=== PATIENT | female | born 2000 | race Caucasian/White ===

== ENCOUNTER 2020-12-16 06:02 | Inpatient (IN) ==
[2020-12-16] MEDS ORDERED: LACTATED RINGERS 1,000 ML IV ONE (06:25)
[2020-12-16] MEDS ORDERED: LACTATED RINGERS 1,000 ML IV SCH ×2 (06:30→12:30)
[2020-12-16 06:59] LABS: Basophils % 0.1 % (0.0-0.8); Eosinophils # 0.1 10*3/uL (0.0-0.87); Eosinophils % 1.5 % (0.00-10.9); Hematocrit 34.5 VOL% (35.7-47.0); Hemoglobin 10.9 GM/DL (12.0-16.0); Immature Granulocytes Absolute 0.08 #; Lymphocytes # 2.1 10*3/uL (1.4-4.0); Lymphocytes % 25.4 % (21.3-54.2); Mean Corpuscular HGB Conc 31.6 GM/DL (32-36); Mean Corpuscular Volume 89.1 FL (87-102); Mean Platelet Volume 10.3 FL (9.6-12.0); Monocytes % 6.7 % (1.7-12.7); Neutrophils % 65.3 % (38.7-73.9); Platelet Count 220 T/CUMM (130-400); Red Blood Count 3.87 MC/CUMM (3.8-5.5); Red Cell Distribution Width 15.6 % (9.3-17.3); White Blood Count 8.2 T/CUMM (4-12)
[2020-12-16 07:26] LABS: Alanine Aminotransferase 14 U/L (13-56); Albumin 2.5 G/DL (3.4-5.0); Alkaline Phosphatase 128 U/L (45-117); Aspartate Amino Transferase 11 U/L (0-37); Bilirubin,Total < 0.39 MG/DL (0.20-1.00); Blood Urea Nitrogen 5 MG/DL (7-18); Calcium 8.6 MG/DL (8.5-10.1); Carbon Dioxide 22 MMOL/L (21-32); Estimated Glom Filtration Rate 164 ML/MIN; Glucose 87 MG/DL (74-106); Osmolality,Calculated 270.7 MOS/KG (273-304); Potassium 3.5 MMOL/L (3.5-5.1); Sodium 138 MMOL/L (136-145); Total Protein 6.5 G/DL (6.4-8.2)
[2020-12-16] MEDS ORDERED: miSOPROStoL 200 MCG TABLET ONE (07:27)
[2020-12-16] MEDS ORDERED: TRANEXAMIC ACID 1,000 MG/10 ML VIAL ONE (07:27)
[2020-12-16] MEDS ORDERED: METHYLERGONOVINE 0.2 MG/1 ML AMP ONE (07:28)
[2020-12-16] MEDS ORDERED: CARBOPROST TROMETHAMINE 250 MCG/ML AMP IM ONE (07:28)
[2020-12-16] MEDS ORDERED: ceFAZolin 2,000 MG/50 ML DUPLEX IV ONE (07:30)
[2020-12-16] MEDS ORDERED: FAMOTIDINE 20 MG/2 ML VIAL IV ONE (07:30)
[2020-12-16] MEDS ORDERED: CITRIC ACID/SODIUM CITRATE 30 ML UDCUP PO ONE (07:30)
[2020-12-16] MEDS ORDERED: PHENYLEPHRINE 1 MG/10 ML SYRINGE IV ONE (07:35)
[2020-12-16] MEDS ORDERED: BUPIVACAINE SPINAL 0.75% 2 ML AMP SPINAL ONE (07:35)
[2020-12-16] MEDS ORDERED: ONDANSETRON 4 MG/2 ML VIAL ONE (07:35)
[2020-12-16] MEDS ORDERED: OXYTOCIN/LR 30 UNIT/1,000 ML BAG IV ONE ×2 (07:52→07:53)
[2020-12-16] MEDS ORDERED: OXYTOCIN 10 UNIT/ML VIAL IM ONE (07:52)
[2020-12-16] MEDS ORDERED: KETOROLAC 30 MG/1 ML VIAL ONE (11:10)
[2020-12-16] MEDS ORDERED: ACETAMINOPHEN INJ 1,000 MG/100 ML VIAL IV ONE (11:10)
[2020-12-16] MEDS ORDERED: MIDAZOLAM 2 MG/2 ML VIAL ONE ×2 (11:14→11:17)
[2020-12-16 11:22] LABS: Bilirubin,Urine Negative (Negative); Blood, Urine Negative (Negative); Glucose,Urine (UA) Negative (Negative); Ketones,Urine Negative (Negative); Nitrite,Urine Negative (Negative); Protein,Urine Negative; RBC,Urine <1 /HPF (0-4); Urine Appearance CLEAR (Clear); Urine Color Straw (Yellow); Urine Specific Gravity 1.008 (1.001-1.035); Urine Urobilinogen < 2.0 EU/DL (0.2-1.0)
[2020-12-16 11:23] LABS: Cord Venous Blood HCO3 25.1 MMOL/L; Cord Venous Blood PCO2 40.3 MMHG; Cord Venous Blood PO2 35.2 MMHG
[2020-12-16] MEDS ORDERED: diphenhydrAMINE 50 MG/1 ML VIAL ONE (11:36)
[2020-12-16] MEDS ORDERED: ACETAMINOPHEN 325 MG TABLET PO PRN (12:10)
[2020-12-16] MEDS ORDERED: OXYTOCIN/LR 20 UNIT/1,000 ML BAG IV ONE (12:10)
[2020-12-16] MEDS ORDERED: RHO(D) IMMUNE GLOBULIN 300 MCG SYRINGE IM ONE (12:10)
[2020-12-16] MEDS ORDERED: SIMETHICONE CHEW 80 MG TABLET PO PRN (12:10)
[2020-12-16] MEDS ORDERED: ONDANSETRON 4 MG/2 ML VIAL IV PRN (12:10)
[2020-12-16] MEDS ORDERED: ACETAMINOPHEN 500 MG TABLET PO SCH (14:00)
[2020-12-16] MEDS: DOCUSATE SODIUM 100 MG CAPSULE PO SCH (22:46)
[2020-12-16 22:48] LABS: Basophils % 0.3 % (0.0-0.8); Eosinophils # 0.2 10*3/uL (0.0-0.87); Hemoglobin 9.7 GM/DL (12.0-16.0); Immature Granulocytes % 0.4 %; Immature Granulocytes Absolute 0.04 #; Lymphocytes # 3.2 10*3/uL (1.4-4.0); Lymphocytes % 35.9 % (21.3-54.2); Mean Corpuscular HGB Conc 31.3 GM/DL (32-36); Mean Corpuscular Volume 90.1 FL (87-102); Mean Platelet Volume 10.3 FL (9.6-12.0); Monocytes % 5.4 % (1.7-12.7); Platelet Count 177 T/CUMM (130-400); Red Blood Count 3.44 MC/CUMM (3.8-5.5); Red Cell Distribution Width 15.5 % (9.3-17.3); White Blood Count 8.9 T/CUMM (4-12)
[2020-12-16] MEDS ORDERED: KETOROLAC 30 MG/1 ML VIAL IV SCH (23:00)
[2020-12-16 23:25] LABS: Eosinophils 1 % (0-10); Hypochromasia Slight; Lymphocytes 34 % (20-55); Platelet Estimate Normal; Segmented Neutrophils 58 % (50-85); Total Cells Counted 100
[2020-12-17 05:15] LABS: Basophils % 0.3 % (0.0-0.8); Eosinophils # 0.2 10*3/uL (0.0-0.87); Eosinophils % 3.1 % (0.00-10.9); Hematocrit 31.2 VOL% (35.7-47.0); Hemoglobin 9.7 GM/DL (12.0-16.0); Immature Granulocytes % 0.6 %; Immature Granulocytes Absolute 0.04 #; Lymphocytes # 2.8 10*3/uL (1.4-4.0); Lymphocytes % 42.2 % (21.3-54.2); Mean Corpuscular HGB Conc 31.1 GM/DL (32-36); Mean Corpuscular Volume 91.5 FL (87-102); Mean Platelet Volume 10.1 FL (9.6-12.0); Monocytes % 5.5 % (1.7-12.7); Neutrophils % 48.3 % (38.7-73.9); Platelet Count 168 T/CUMM (130-400); Red Blood Count 3.41 MC/CUMM (3.8-5.5); Red Cell Distribution Width 15.7 % (9.3-17.3); White Blood Count 6.5 T/CUMM (4-12)
[2020-12-17] MEDS: MULTIVITAMIN (PRENATAL) TABLET PO SCH (09:05)
[2020-12-17] MEDS: DOCUSATE SODIUM 100 MG CAPSULE PO SCH ×2 (09:05→20:58)
[2020-12-17] MEDS: MAGNESIUM HYDROXIDE SUSP 30 ML UDCUP PO PRN ×2 (10:50→20:58)
[2020-12-17] MEDS: METOCLOPRAMIDE 10 MG TABLET PO SCH ×2 (11:04→18:46)
[2020-12-17] MEDS: FERROUS SULFATE 325 MG TABLET PO SCH (11:54)
[2020-12-17] MEDS: IBUPROFEN 800 MG TABLET PO PRN (11:55)
[2020-12-18] MEDS: IBUPROFEN 800 MG TABLET PO PRN (02:04)
[2020-12-18] MEDS ORDERED: BISACODYL 10 MG SUPP RECTAL PRN (02:27)
[2020-12-18] MEDS: METOCLOPRAMIDE 10 MG TABLET PO SCH (03:17)
[2020-12-18] MEDS: DOCUSATE SODIUM 100 MG CAPSULE PO SCH (08:04)
[2020-12-18] MEDS: MULTIVITAMIN (PRENATAL) TABLET PO SCH (08:04)
[2020-12-18] MEDS: FERROUS SULFATE 325 MG TABLET PO SCH (08:04)
[2020-12-18 08:38] VITALS: BP 125/78
== END 2020-12-18 11:25 | disposition home or self-care (01) | DRG 540 ==
LOC: N.LD 06:02 → N.OB 15:42
PROVIDERS: ADMIT Obstetrics & Gynecology; ATTEND Obstetrics & Gynecology
PROC: LDCSECT (ICD-10-PCS; 2020-12-16 09:00)